=== PATIENT | male | born 1960 | race Caucasian/White ===

== ENCOUNTER 2016-12-13 12:42 | Inpatient (IN) | payer BC ==
[2016-12-13] VITALS (10 sets, daily range): BP systolic 133–173; BP diastolic 81–104; PULSE 77–96; RESP 16–22; TEMP 96.5–98.4; O2SAT 94–99
[~2016-12-13] VITALS: Ht 160 cm; Wt 82.4 kg
[2016-12-13 13:11] LABS: AUTOMATED NEUTROPHIL # 5.4 TH/MM3 (1.8-7.7); BASOPHIL # 0.1 TH/MM3 (0-0.2); BASOPHIL % 0.8 % (0.0-2.0); EOSINOPHIL # 0.3 TH/MM3 (0-0.4); EOSINOPHIL % 3.5 % (0.0-4.0); HEMATOCRIT 47.4 % (39.0-51.0); HEMO FLAGS DIFF FINAL; LYMPH % 23.3 % (9.0-44.0); LYMPHOCYTE # 2.1 TH/MM3 (1.0-4.8); MEAN CELL VOLUME 84.2 FL (80.0-100.0); MEAN CORPUSCULAR HEMOGLOBIN 28.5 PG (27.0-34.0); MEAN CORPUSCULAR HGB CONC 33.8 % (32.0-36.0); MONO % 9.9 % (0.0-8.0); NEUT % 62.5 % (16.0-70.0); PLATELET COUNT 217 TH/MM3 (150-450); RED BLOOD COUNT 5.63 MIL/MM3 (4.50-5.90); RED CELL DISTRIBUTION WIDTH 12.2 % (11.6-17.2); WHITE BLOOD COUNT 8.8 TH/MM3 (4.0-11.0)
[2016-12-13 13:21] LABS: CHLORIDE 102 MEQ/L (98-107); SODIUM (NA) 137 MEQ/L (136-145)
--- NOTE | 2016-12-13 13:23 | RADRPT ---
EXAM DATE/TIME: 12/13/2016 13:10 [facility] COMPARISON: No previous studies available for comparison. INDICATIONS : Episode of confusion. RADIATION DOSE: 59.06 CTDIvol (mGy) MEDICAL HISTORY : None SURGICAL HISTORY : None. ENCOUNTER: Initial ACUITY: 1 day PAIN SCALE: 0/10 LOCATION: cranial TECHNIQUE: Multiple contiguous axial images were obtained of the head. Using automated exposure control and adj ustment of the mA and/or kV according to patient size, radiation dose was kept as low as reasonably a chievable to obtain optimal diagnostic quality images. DICOM format image data is available electro nically for review and comparison. FINDINGS: CEREBRUM: The ventricles are normal for age. No evidence of midline shift, mass lesion, hemorrhage or acute in farction. No extra-axial fluid collections are seen. POSTERIOR FOSSA: The cerebellum and brainstem are intact. The 4th ventricle is midline. The cerebellopontine angle i s unremarkable. EXTRACRANIAL: The visualized portion of the orbits is intact. SKULL: The calvaria is intact. No evidence of skull fracture. CONCLUSION: 1. No evidence of acute intracranial pathology. No masses are identified. Sadiq Mckenna MD on December 13, 2016 at 13:20 Board Certified Radiologist. This report was verified electronically.
[2016-12-13 13:25] LABS: ANION GAP 8 MEQ/L (5-15); BICARBONATE 26.6 MEQ/L (21.0-32.0); BLOOD UREA NITROGEN 11 MG/DL (7-18)
[2016-12-13 13:27] LABS: ALT (GPT) 51 U/L (12-78)
[2016-12-13 13:28] LABS: AST (GOT) 22 U/L (15-37); GLOMERULAR FILTRATION RATE 79 ML/MIN (>89)
[2016-12-13 13:29] LABS: TOTAL BILIRUBIN ADULT 0.5 MG/DL (0.2-1.0)
[2016-12-13 13:30] LABS: ALKALINE PHOSPHATASE 76 U/L (45-117)
--- NOTE | 2016-12-13 13:38 | PD ---
HPI Chief Complaint: Altered Mental Status Time Seen by Provider: 12:50 Travel History International Travel<30 days: No Contact w/Intl Traveler<30days: No Traveled to known affect area: No History of Present Illness HPI Is a 19-year-old man who presents to the emergency department because of an episode confusion. He is down here visiting friends. His states that she went to go check on him when he was supposed be taking a shower. He came out of the bathroom and was disoriented and confused. No where he was, unrecognized house today been staying in for the past 3 days. He did recognize her as well as her friends. He did not complain of any somatic complaints. Denies any chest pain. She thought he did look a little bit sweaty. He does have a history of some back problems and is some point to complain of little bit of back pain but none now. He has been generally ill but more alcohol than normal this week and was not drinking at all this morning. No illicit drug use. This morning at otherwise been feeling generally well and healthy. History Past Medical History Narrative Medical Bladder tumor removal in March 2016 Social History Tobacco Use: No Allergies-Medications (Allergen,Severity, Reaction): Coded Allergies: shellfish derived (Verified Allergy, Severe, Anaphylaxis, 12/13/16) Review of Systems Except as stated in HPI: all other systems reviewed are Neg Physical Exam Narrative GENERAL: Well-appearing 56-year-old man, no acute distress. SKIN: Focused skin assessment warm/dry. HEAD: Atraumatic. Normocephalic. EYES: Pupils equal and round. No scleral icterus. No injection or drainage. ENT: No nasal bleeding or discharge. Mucous membranes pink and moist. NECK: Trachea midline. No JVD. CARDIOVASCULAR: Regular rate and rhythm. No murmur appreciated. RESPIRATORY: No accessory muscle use. Clear to auscultation. Breath sounds equal bilaterally. GASTROINTESTINAL: Abdomen soft, non-tender, nondistended. Hepatic and splenic margins not palpable. MUSCULOSKELETAL: No obvious deformities. No clubbing. No cyanosis. No edema. NEUROLOGICAL: Awake and alert. Cranial nerves II through XII are intact. Motor strength full and equal upper and lower extremities. No pronator drift. Normal finger to nose. Normal [id number]. Sensation intact to light touch bilaterally. No mental status. Normal speech. A and O 4. PSYCHIATRIC: Appropriate mood and affect; insight and judgment normal. Data Data Last Documented VS Vital Signs Date Time Temp Pulse Resp B/P (MAP) Pulse Ox O2 Delivery O2 Flow Rate FiO2 12/13/16 14:26 80 16 148/95 (112) 99 Room Air 12/13/16 12:45 98.4 Orders Orders Electrocardiogram (12/13/16 12:58) Complete Blood Count With Diff (12/13/16 12:58) Comprehensive Metabolic Panel (12/13/16 12:58) Troponin I (12/13/16 12:58) Thyroid Stimulating Hormone (12/13/16 12:58) Chest, Single Ap (12/13/16 12:58) Ct Brain W/O Iv Contrast(Rout) (12/13/16 12:58) Blood Glucose (12/13/16 12:58) Ecg Monitoring (12/13/16 12:58) Iv Access Insert/Monitor (12/13/16 12:58) Oximetry (12/13/16 12:58) Labs Laboratory Tests Test 12/13/16 12:45 White Blood Count 8.8 TH/MM3 Red Blood Count 5.63 MIL/MM3 Hemoglobin 16.0 GM/DL Hematocrit 47.4 % Mean Corpuscular Volume 84.2 FL Mean Corpuscular Hemoglobin 28.5 PG Mean Corpuscular Hemoglobin Concent 33.8 % Red Cell Distribution Width 12.2 % Platelet Count 217 TH/MM3 Mean Platelet Volume 8.8 FL Neutrophils (%) (Auto) 62.5 % Lymphocytes (%) (Auto) 23.3 % Monocytes (%) (Auto) 9.9 % Eosinophils (%) (Auto) 3.5 % Basophils (%) (Auto) 0.8 % Neutrophils # (Auto) 5.4 TH/MM3 Lymphocytes # (Auto) 2.1 TH/MM3 Monocytes # (Auto) 0.9 TH/MM3 Eosinophils # (Auto) 0.3 TH/MM3 Basophils # (Auto) 0.1 TH/MM3 CBC Comment DIFF FINAL Differential Comment Blood Urea Nitrogen 11 MG/DL Creatinine 0.98 MG/DL Random Glucose 99 MG/DL Total Protein 7.8 GM/DL Albumin 4.0 GM/DL Calcium Level 8.7 MG/DL Alkaline Phosphatase 76 U/L Aspartate Amino Transf (AST/SGOT) 22 U/L Alanine Aminotransferase (ALT/SGPT) 51 U/L Total Bilirubin 0.5 MG/DL Sodium Level 137 MEQ/L Potassium Level 4.0 MEQ/L Chloride Level 102 MEQ/L Carbon Dioxide Level 26.6 MEQ/L Anion Gap 8 MEQ/L Estimat Glomerular Filtration Rate 79 ML/MIN Troponin I LESS THAN 0.02 NG/ML Thyroid Stimulating Hormone 3rd Gen 1.550 uIU/ML [facility] Medical Decision Making Medical Screen Exam Complete: Yes Emergency Medical Condition: Yes Interpretation(s) My review of EKG: Normal sinus rhythm at a rate of 78, normal axis, normal intervals, no acute ischemia. LABS: CBC is unremarkable. CMP is unremarkable. Troponin negative. TSH unremarkable. CT head: Negative. My review of chest x-ray: Unremarkable. Differential Diagnosis Weakness, confusion, CVA, TIA, ACS, head injury, seizure, other Narrative Course Medical decision-making 56-year-old minutes man with unusual episode transient confusion. Now resolved. Looks well. No evidence of trauma. No history of seizure. No evidence of stroke. Otherwise looks well. We'll check CT head, labs, EKG, reassess. FINAL: Transient global confusion etiology unclear. Low risk for stroke based on his ABCD 2 score, however he is visiting from the [facility] out of town and has no options for outpatient follow-up. Recommend observation for TIA evaluation. Diagnosis Primary Impression: Transient confusion Disposition: 01 DISCHARGE HOME Condition: Stable Yasir Cardozo MD Dec 13, 2016 13:38
--- NOTE | 2016-12-13 14:36 | RADRPT ---
EXAM DATE/TIME: 12/13/2016 13:20 [facility] COMPARISON: No previous studies available for comparison. INDICATIONS : Neurological deficits. MEDICAL HISTORY : None. SURGICAL HISTORY : None. ENCOUNTER: Initial ACUITY: 1 day PAIN SCORE: 3/10 LOCATION: Bilateral upper chest FINDINGS: A single view of the chest demonstrates the lungs to be symmetrically aerated without evidence of mas s, infiltrate or effusion. The cardiomediastinal contours are unremarkable. Osseous structures are intact. Multiple calcified granulomas are present in the left lung. CONCLUSION: 1. No acute cardiopulmonary disease. Sadiq Mckenna MD on December 13, 2016 at 14:34 Board Certified Radiologist. This report was verified electronically.
[2016-12-13] MEDS: SODIUM CHLOR 0.45% 1000 ML INJ 1,000 ML IV SCH (15:25)
--- NOTE | 2016-12-13 16:27 | HHI.HP ---
[facility] No Primary Care Physician Admission Diagnosis transient confusion, rule out TIA Diagnoses: (1) Amnesia, global, transient Diagnosis: Principal (2) Transient confusion Diagnosis: Principal Chief Complaint: Confusion, forgetfulness Travel History International Travel<30 Days: No Contact w/Intl Traveler <30 Da: No Traveled to Known Affected Are: No History of Present Illness Written by Adam Wong, acting as scribe for Dr. Figueredo on 12/13/16 at 16:27. Is a 56-year-old male with history of hyperlipidemia, bladder bladder tumor status post resection who presented to hospital because of confusion. Patient states that he is in a normal state of health until this morning at approximately 11 AM. Patient is visiting here from the [facility] and is staying at the beach. He went out with his to do is walk on the beach because they plan on going home today. They walk for approximately 1-1/2 miles/ 30 minutes. Patient states that he was hot. He went back upstairs in order to take a shower. His continue to walk. When his came back to the [facility] the patient was standing confused. He had his shirt in his hand. He does not remember what had happened to him. He did not know if he had taken a shower or not. He did not know if he had fallen or hit his head. Patient did not know where he was, what he was doing. He had complete loss of memory from the time he made it up to the [facility]. Because of those reasons his drove him to the hospital for evaluation. While the patient was in the emergency department his memory slowly came back and he is completely aware of everything except for the one hour from the time he went and took a shower until the time he was in the ER. The patient denies any other neurological symptoms. There is no chest pain, shortness of breath, lightheadedness, dizziness, slurred speech, visual disturbances, weakness, loss of bowel or bladder control. Patient had unremarkable workup in emergency department and he was recommended by the ER physician that the patient be observed for further neurological testing Review of Systems Psychiatric: COMPLAINS OF: Confusion Except as stated in HPI: all other systems reviewed are Neg Past Family Social History Past Medical History History of bladder tumor Hyperlipidemia Past Surgical History Bladder tumor removal Allergies: Coded Allergies: shellfish derived (Verified Allergy, Severe, Anaphylaxis, 12/13/16) Family History Reviewed is significant for father having multiple strokes in his 60s. Mother with diabetes. Grandfather with myocardial infarction Social History Patient quit smoking 5 years ago, he did smoke for over 20 years. He does continue to use nicotine lozenges approximately 5 times daily. Does drink alcohol daily 2-3 drinks. He does use marijuana occasionally Physical Exam Vital Signs Vital Signs Date Time Temp Pulse Resp B/P (MAP) Pulse Ox O2 Delivery O2 Flow Rate FiO2 12/13/16 16:14 85 16 155/92 (113) 97 12/13/16 16:00 83 16 97 Room Air 12/13/16 14:26 80 16 148/95 (112) 99 Room Air 12/13/16 14:00 73 16 99 Room Air 12/13/16 13:45 78 16 150/97 (114) 12/13/16 12:50 16 99 Room Air 12/13/16 12:50 78 16 99 Room Air 12/13/16 12:45 98.4 77 16 173/104 (127) 99 Physical Exam GENERAL: Well-developed, well-nourished, in no acute distress. alert and orientated HEENT: Head is normocephalic without any lesions or masses noted. Facial features are symmetric. Eyes: Pupils equal round reactive to light. Extraocular muscles are intact. Conjunctivae were clear. Oropharyngeal: Pharynx without any erythema edema. Tongue is midline without deviation. Buccal mucosa is moist without any masses or lesions NECK: Supple without any masses. Trachea midline no deviation. No JVD, no bruits are appreciated CARDIAC: Regular rhythm, regular rate. S1/S2 are heard. No murmurs gallops or rubs. LUNGS: Clear to auscultation bilaterally. No wheeze, rhonchi or rales. No use of accessory muscles on inspiration or expiration. ABDOMEN: Soft, nontender. Nondistended. Bowel sounds heard in all 4 quadrants. No organomegaly or masses. Negative rebound, negative guarding EXTREMITIES: No edema, pulses are equal bilaterally. No cyanosis or clubbing NEUROLOGY: Mood and affect appear appropriate. Cranial nerves II through XII grossly intact. Muscle strength 5/5 in upper and lower extremities bilaterally. Patellar Deep tendon reflexes are diminished BL. Laboratory Laboratory Tests Test 12/13/16 12:45 White Blood Count 8.8 Red Blood Count 5.63 Hemoglobin 16.0 Hematocrit 47.4 Mean Corpuscular Volume 84.2 Mean Corpuscular Hemoglobin 28.5 Mean Corpuscular Hemoglobin Concent 33.8 Red Cell Distribution Width 12.2 Platelet Count 217 Mean Platelet Volume 8.8 Neutrophils (%) (Auto) 62.5 Lymphocytes (%) (Auto) 23.3 Monocytes (%) (Auto) 9.9 Eosinophils (%) (Auto) 3.5 Basophils (%) (Auto) 0.8 Neutrophils # (Auto) 5.4 Lymphocytes # (Auto) 2.1 Monocytes # (Auto) 0.9 Eosinophils # (Auto) 0.3 Basophils # (Auto) 0.1 CBC Comment DIFF FINAL Differential Comment Blood Urea Nitrogen 11 Creatinine 0.98 Random Glucose 99 Total Protein 7.8 Albumin 4.0 Calcium Level 8.7 Alkaline Phosphatase 76 Aspartate Amino Transf (AST/SGOT) 22 Alanine Aminotransferase (ALT/SGPT) 51 Total Bilirubin 0.5 Sodium Level 137 Potassium Level 4.0 Chloride Level 102 Carbon Dioxide Level 26.6 Anion Gap 8 Estimat Glomerular Filtration Rate 79 Troponin I LESS THAN 0.02 Thyroid Stimulating Hormone 3rd Gen 1.550 Result Diagram: 12/13/16 1245 12/13/16 1245 Caprini VTE Risk Assessment Caprini VTE Risk Assessment: No/Low Risk (score <= 1) Caprini Risk Assessment Model Point Value = 1 Point Value = 2 Point Value = 3 Point Value = 5 Age 41-60 Minor surgery BMI > 25 kg/m2 Swollen legs Varicose veins or History of unexplained or recurrent spontaneous Oral contraceptives or hormone replacement Sepsis (< 1 month) Serious lung disease, including pneumonia (< 1 month) Abnormal pulmonary function Acute myocardial infarction Congestive heart failure (< 1 month) History of inflammatory bowel disease Medical patient at bed rest Age 61-74 Arthroscopic surgery Major open surgery (> 45 min) Laparoscopic surgery (> 45 min) Malignancy Confined to bed (> 72 hours) Immobilizing plaster cast Central venous access Age >= 75 History of VTE Family history of VTE Factor V Leiden Prothrombin [id number] Lupus anticoagulant Anticardiolipin antibodies Elevated serum homocysteine Heparin-induced thrombocytopenia Other congenital or acquired thrombophilia Stroke (< 1 month) Elective arthroplasty Hip, pelvis, or leg fracture Acute spinal cord injury (< 1 month) Prophylaxis Regimen Total Risk Factor Score Risk Level Prophylaxis Regimen 0-1 Low Early ambulation 2 Moderate Order ONE of the following: *Sequential Compression Device (SCD) *Heparin 5000 units SQ BID 3-4 Higher Order ONE of the following medications: *Heparin 5000 units SQ TID *Enoxaparin/Lovenox 40 mg SQ daily (WT < 150 kg, CrCl > 30 mL/min) *Enoxaparin/Lovenox 30 mg SQ daily (WT < 150 kg, CrCl > 10-29 mL/min) *Enoxaparin/Lovenox 30 mg SQ BID (WT < 150 kg, CrCl > 30 mL/min) AND/OR *Sequential Compression Device (SCD) 5 or more Highest Order ONE of the following medications: *Heparin 5000 units SQ TID (Preferred with Epidurals) *Enoxaparin/Lovenox 40 mg SQ daily (WT < 150 kg, CrCl > 30 mL/min) *Enoxaparin/Lovenox 30 mg SQ daily (WT < 150 kg, CrCl > 10-29 mL/min) *Enoxaparin/Lovenox 30 mg SQ BID (WT < 150 kg, CrCl > 30 mL/min) AND *Sequential Compression Device (SCD) Assessment and Plan Assessment and Plan possible TIA Aspirin, Lipitor CT scan of the brain was unremarkable Will obtain MRI/MRA of the brain, echocardiogram, carotid ultrasound Further laboratory studies to include B12, TSH, lipid panel PT/OT evaluations permissive HTN DVT prevention Sequential compression devices This note was transcribed by laura Wong. I, Marlon Figueredo, personally performed the history, physical exam, and medical decision making; and confirmed the accuracy of information in the transcribed note. Authenticated by Marlon Figueredo on 12/13/16 at 1830. I independently reviewed EKG findings which were unremarkable. Adam Wong Dec 13, 2016 16:27 Marlon Figueredo MD Dec 15, 2016 08:40
[2016-12-13] MEDS ORDERED: ATORVASTATIN 40 MG TAB PO ONE (16:45)
[2016-12-13] MEDS ORDERED: SODIUM CHLOR 0.9% 1000 ML INJ 1,000 ML IV ONE (16:45)
[2016-12-13] MEDS: ASPIRIN 325 MG TAB PO SCH (17:36)
[2016-12-13 18:26] LABS: HDL CHOLESTEROL 47.8 MG/DL (40.0-60.0)
--- NOTE | 2016-12-13 18:48 | RADRPT ---
EXAM DATE/TIME: 12/13/2016 18:29 [facility] COMPARISON: No previous studies available for comparison. INDICATIONS : Confusion. MEDICAL HISTORY : Bladder tumor. SURGICAL HISTORY : Bladder tumor removal. Wrist surgery. ENCOUNTER: Initial ACUITY: 1 day PAIN SCORE: 0/10 LOCATION: cranial TECHNIQUE: Multiplanar, multisequence MRI of the brain was performed without contrast. FINDINGS: CEREBRUM: The ventricles are normal for age. No evidence of midline shift, mass lesion, hemorrhage or acute in farction. No extraaxial fluid collections are seen. The pituitary gland and suprasellar cistern are normal in configuration. WHITE MATTER: No significant signal abnormalities are seen in the white matter. POSTERIOR FOSSA: The cerebellum and brainstem are intact. The 4th ventricle is midline. The cerebellopontine angle is unremarkable. The cerebellar tonsils are normal in position. DIFFUSION IMAGING: No focal areas of restricted diffusion are seen. No evidence of acute infarction. EXTRACRANIAL: A T2 hyperintense structure is identified posteriorly within the left side of the nasal fossa. This m ay represent a large retention cyst. Mild mucosal thickening is seen in the paranasal sinuses. The vi sualized portions of the orbits are unremarkable. CONCLUSION: 1. Inflammatory paranasal sinus disease with a left-sided nasal fossa retention cyst. 2. No evidence of acute intercranial process; no evidence of acute infarct, hemorrhage, mass or edema . Reece Daly MD on December 13, 2016 at 18:44 Board Certified Radiologist. This report was verified electronically.
--- NOTE | 2016-12-13 19:32 | RADRPT ---
EXAM DATE/TIME: 12/13/2016 18:48 [facility] COMPARISON: No previous studies available for comparison. INDICATIONS : Transient ischemic attack. MEDICAL HISTORY : Hypertension. Carcinoma, bladder. Confusion. Carpal tunnel. SURGICAL HISTORY : Left wrist surgery. Bladder tumor removal. ENCOUNTER: Initial ACUITY: 1 day PAIN SCORE: 0/10 LOCATION: Bilateral neck PEAK SYSTOLIC VELOCITIES (cm/sec): ICA/CCA RATIO: Right: 0.9 Left: 1.0 ICA: Right: 90 Left: 101 CCA: Right: 104 Left: 102 ECA: Right: 109 Left: 112 VERTEBRAL: Right: 44 antegrade Left: 37 antegrade Elevated flow velocities and ICA/CCA ratios have been found to correlate with increased degrees of vessel stenosis, calculated as percentage of diameter relative to a normal segment of distal ICA/CCA FINDINGS: Minimal plaque and intimal thickening is noted. RIGHT CAROTID: No significant stenosis is visualized. The waveforms are within normal limits. LEFT CAROTID: No significant stenosis is visualized. The waveforms are within normal limits. VERTEBRAL ARTERIES: Antegrade flow is seen in both vertebral arteries. MISCELLANEOUS: None. CONCLUSION: No evidence of significant atherosclerotic vascular disease or hemodynamically significant stenosis. Antegrade flow both vertebral arteries. Reece Daly MD on December 13, 2016 at 19:28 Board Certified Radiologist. This report was verified electronically.
[2016-12-14] VITALS: BP 126/83; PULSE 80; RESP 20; TEMP 96.5; O2SAT 97
[2016-12-14] MEDS: SODIUM CHLOR 0.45% 1000 ML INJ 1,000 ML IV SCH (03:55)
[2016-12-14 04:00] VITALS: BP 123/83; PULSE 81; RESP 18; TEMP 96.2; O2SAT 96
[2016-12-14 07:08] LABS: BICARBONATE 27.3 MEQ/L (21.0-32.0)
[2016-12-14 07:15] VITALS: PULSE 66
[2016-12-14 08:00] VITALS: BP 144/91; PULSE 61; RESP 16; TEMP 96.2; O2SAT 97
[2016-12-14] MEDS: ASPIRIN 325 MG TAB PO SCH (09:12)
[2016-12-14 12:00] VITALS: BP 147/93; PULSE 80; RESP 20; TEMP 98.7; O2SAT 96
[2016-12-14] MEDS ORDERED: ASPI81TA11 PO (13:15)
--- NOTE | 2016-12-14 13:16 | HHI.DCPOC ---
Discharge Care Plan Diagnosis: (1) Amnesia, global, transient (2) Transient confusion Goals to Promote Your Health * To prevent worsening of your condition and complications * To maintain your health at the optimal level Directions to Meet Your Goals Take your medications as prescribed Follow your dietary instruction Follow activity as directed Keep your appointments as scheduled Take your immunizations and boosters as scheduled If your symptoms worsen call your PCP, if no PCP go to Urgent Care Center or Emergency Room Smoking is Dangerous to Your Health. Avoid second hand smoke Call the 24-hour hour crisis hotline for domestic abuse at Marlon Figueredo MD Dec 14, 2016 13:15
--- NOTE | 2016-12-14 13:16 | HHI.DS ---
Discharge Summary Admission Date Dec 13, 2016 at 14:40 Discharge Date: Dec 14, 2016 Admitting Diagnosis possible TIA (1) Amnesia, global, transient ICD Code: G45.4 - Transient global amnesia Diagnosis: Principal (2) Transient confusion ICD Code: R41.0 - Disorientation, unspecified Diagnosis: Principal Status: Acute Procedures eeg Brief History - From Admission Written by Adam Wong, acting as scribe for Dr. Figueredo on 12/13/16 at 16:27. Is a 56-year-old male with history of hyperlipidemia, bladder bladder tumor status post resection who presented to hospital because of confusion. Patient states that he is in a normal state of health until this morning at approximately 11 AM. Patient is visiting here from the [facility] and is staying at the [place]. He went out with his to do is walk on the beach because they plan on going home today. They walk for approximately 1-1/2 miles/ 30 minutes. Patient states that he was hot. He went back upstairs in order to take a shower. His continue to walk. When his came back to the [facility] the patient was standing confused. He had his shirt in his hand. He does not remember what had happened to him. He did not know if he had taken a shower or not. He did not know if he had fallen or hit his head. Patient did not know where he was, what he was doing. He had complete loss of memory from the time he made it up to the [facility]. Because of those reasons his drove him to the hospital for evaluation. While the patient was in the emergency department his memory slowly came back and he is completely aware of everything except for the one hour from the time he went and took a shower until the time he was in the ER. The patient denies any other neurological symptoms. There is no chest pain, shortness of breath, lightheadedness, dizziness, slurred speech, visual disturbances, weakness, loss of bowel or bladder control. Patient had unremarkable workup in emergency department and he was recommended by the ER physician that the patient be observed for further neurological testing CBC/BMP: 12/13/16 1245 12/14/16 0550 Significant Findings Laboratory Tests Test 12/13/16 12:45 12/13/16 17:00 12/14/16 05:50 Monocytes (%) (Auto) 9.9 % (0.0-8.0) Estimat Glomerular Filtration Rate 79 ML/MIN (>89) Troponin I LESS THAN 0.02 NG/ML Triglycerides Level 161 MG/DL (42-150) Cholesterol Level 216 MG/DL (120-200) LDL Cholesterol 136 MG/DL (0-99) Lactic Acid Level 2.7 mmol/L (0.4-2.0) Calcium Level 8.4 MG/DL (8.5-10.1) PE at Discharge No slurred speech, no facial droop, no facial asymmetry Alert and oriented 3 Hospital Course Patient was admitted, underwent work up for strokelike symptoms. No overt cerebrovascular disease was found, suspect that the patient had transient global amnesia. Patient's clinical status remained normal with no recurrence of his symptoms while hospitalized. Case was discussed with neurology who did not feel that the patient needed to be restricted from driving or operating any heavy machinery. Underwent EEG per neurology's recommendations, which turned to be negative. Patient has met maximal benefit from hospitalization and is clinically stable for discharge. Pt Condition on Discharge: Stable Discharge Disposition: Discharge Home Discharge Time: > 30 minutes Discharge Instructions DIET: Follow Instructions for: As Tolerated, No Restrictions Follow up Referrals: Appointment for Follow Up PCP Follow-up - 10 Days New Medications: Aspirin DR (Aspirin EC) 81 Mg Tabdr 81 MG PO DAILY for Blood Clot Prevention, #30 TAB 0 Refills Marlon Figueredo MD Dec 14, 2016 13:16
--- NOTE | 2016-12-14 14:01 | RADRPT ---
EXAM DATE/TIME: 12/14/2016 13:42 [place] COMPARISON: No previous studies available for comparison. INDICATIONS : Confusion. Global amnesia. MEDICAL HISTORY : Bladder tumor. SURGICAL HISTORY : Bladder sx, left wrist sx. ENCOUNTER: Initial ACUITY: 2 day PAIN SCORE: 2/10 LOCATION: Bilateral cranial Please note a normal MRA of the brain does not entirely exclude the possibility of a small aneurysm, nor the possibility of distal intracranial vessel disease. TECHNIQUE: 3D time of flight MRA was performed. Source images, multiplanar STS MIP, and 3D volume MIP reconstru ctions were reviewed. FINDINGS: There is excellent visualization of the major intracranial arteries out to the second-order branch ve ssels. There is variant anatomy with persistent circulation on the right. There is no evidence for aneurysm, vessel truncation or stenosis, and no evidence for vascular malformation. CONCLUSION: No acute disease. Jame Bucio Jr., MD on December 14, 2016 at 13:56 Board Certified Radiologist. This report was verified electronically.
--- NOTE | 2016-12-14 14:07 | ECHRPT ---
Indication: CVA/TIA CONCLUSIONS Normal left ventricular size. Mild concentric left ventricular hypertrophy. Trace mitral valve regurgitation. There is trace tricuspid valve regurgitation. Normal estimated pulmonary pressures. BP: / HR: Rhythm: Sinus MEASUREMENTS (Male / Female) Normal Values Technical Quality:Fair 2D ECHO LV Diastolic Diameter PLAX 3.9 cm 4.2 - 5.9 / 3.9 - 5.3 cm LV Systolic Diameter PLAX 2.8 cm IVS Diastolic Thickness 1.1 cm 0.6 - 1.0 / 0.6 - 0.9 cm LVPW Diastolic Thickness 1.0 cm 0.6 - 1.0 / 0.6 - 0.9 cm LV Relative Wall Thickness 0.5 LVOT Diameter 1.8 cm Aortic Root Diameter 2.5 cm LA Systolic Diameter LX 2.9 cm 3.0 - 4.0 / 2.7 - 3.8 cm M-MODE AV Cusp Separation MM 1.8 cm DOPPLER AV Peak Velocity 86.3 cm/s AV Peak Gradient 3.0 mmHg AV Mean Gradient 2.0 mmHg AV Velocity Time Integral 19.3 cm LVOT Peak Velocity 82.0 cm/s LVOT Peak Gradient 2.7 mmHg LVOT Velocity Time Integral 17.8 cm AV Area Cont Eq vti 2.3 cm AV Area Cont Eq pk 2.4 cm Mitral E Point Velocity 79.5 cm/s Mitral A Point Velocity 57.8 cm/s Mitral E to A Ratio 1.4 LV E' Lateral Velocity 11.9 cm/s Mitral E to LV E' Lateral Ratio 6.7 LV E' Septal Velocity 10.1 cm/s Mitral E to LV E' Septal Ratio 7.9 TR Peak Velocity 245.0 cm/s TR Peak Gradient 24.0 mmHg Right Atrial Pressure 10.0 mmHg Pulmonary Artery Systolic Pressu 34.0 mmHg Right Ventricular Systolic Press 34.0 mmHg PV Peak Velocity 61.7 cm/s PV Peak Gradient 1.5 mmHg FINDINGS LEFT VENTRICLE Normal left ventricular size. Mild concentric left ventricular hypertrophy. The left ventricular systolic function is normal with an estimated ejection fraction in the range of 60-65%. MITRAL VALVE Trace mitral valve regurgitation. TRICUSPID VALVE There is trace tricuspid valve regurgitation. Normal estimated pulmonary pressures. Gurvinder Whitfield MD (Electronically Signed) Final Date:14 December 2016 14:06
--- NOTE | 2016-12-14 22:27 | MG ---
cc: SHARONDA CASTILLO MD Lab No: Date: 12/14/2016 Age: Sex: M Race: DATE OF [address] Figueredo. MEDICAL HISTORY Confusion with loss of memory, alcohol use, hypertension, chronic back pain. MEDICATIONS Aspirin. DESCRIPTION The background activity is 9-10 Hz alpha located posteriorly, attenuates to eye-opening bilaterally and symmetrically with a posterior to anterior gradient. Photic stimulation did elicit a symmetrical normal driving response. Hyperventilation did not make a change in the EEG recording. During the recording there was movement artifact and eye movement artifact. There were no electrographic seizures or epileptiform discharges noted during the recording. INTERPRETATION This is a normal awake EEG. Absence of electrographic seizures or epileptiform discharges does not exclude diagnosis of epilepsy. Clinical correlation is recommended. Sharonda Castillo MD RGO/KK /8:06 PM /10:20 PM MTDD
--- NOTE | 2016-12-14 23:05 | EKG ---
Date Performed: 12/13/2016 Time Performed: 12:47:26 PTAGE: 56 years EKG: Sinus rhythm BORDERLINE RIGHT AXIS DEVIATION BORDERLINE ECG NO PREVIOUS TRACING DOCTOR: Cecilio Cesar Interpretating Date/Time 12/14/2016 23:03:30
== END 2016-12-14 15:39 | disposition home or self-care (01) | DRG 72 ==
LOC: PHED 12:42 → PHEDA 14:40 → OBSVTOIN 14:40 → PH3A 16:23
PROVIDERS: ADMIT Hospitalist; ATTEND Hospitalist
DX: G45.4 Transient global amnesia (principal); E78.5 Hyperlipidemia, unspecified; F12.90 Cannabis use, unspecified, uncomplicated; Z91.013 Allergy to seafood; Z87.891 Personal history of nicotine dependence
CPT/HCPCS: 70450; 70544; 70551; 71010; 80048; 80053; 80061; 82607; 83605; 84443; 84484; 85025; 93005; 93306; 93880; 95819; G9162-GN; G9163-GN; G9164-GN; G9168-GN; G9169-GN; G9170-GN; J7030